=== PATIENT | male | born 1995 ===

== ENCOUNTER 2016-08-27 02:16 | Observation (INO) | payer BC ==
[2016-08-27 02:26] VITALS: TEMP 98.7; O2SAT 99
[2016-08-27] MEDS ORDERED: Dextrose 5%/0.45% NS 1,000 ML IV SCH (02:45)
[2016-08-27 02:59] LABS: BASO # 0.1 K/uL (0.0-0.2); BASO % 0.8 % (0.0-2.0); EOS % 0.2 % (0.0-4.0); HEMATOCRIT 44.6 % (35.0-51.0); LYMPH # 3.8 K/uL (1.0-4.3); LYMPH % 32.1 % (20.0-40.0); MEAN CELL VOLUME 89.4 fl (80.0-94.0); MEAN CORPUSCULAR HEMOGLOBIN 29.1 pg (27.0-31.0); MEAN CORPUSCULAR HGB CONC 32.5 g/dL (33.0-37.0); MEAN PLATELET VOLUME 7.8 fl (7.2-11.7); MONO # 0.9 K/uL (0.0-0.8); MONO % 7.4 % (0.0-10.0); NEUT % 59.5 % (50.0-75.0); NRBC % 0.1 % (0.0-0.0); RED CELL DISTRIBUTION WIDTH 12.9 % (11.5-14.5); WHITE BLOOD COUNT 11.7 K/uL (4.8-10.8)
--- NOTE | 2016-08-27 03:07 | ED PDOC ---
HPI: Psych/Substance Abuse Time Seen by Provider: 08/27/16 02:20 Chief Complaint (Nursing): Alcohol Ingestion Chief Complaint (Provider): Alcohol Intoxication ED Caveat: Intoxicated History Per: EMS, Family (brother is at bedside ) History/Exam Limitations: intoxication Additional Complaint(s): Alec Diaz is a 21 y/o male brought in by EMS on 08/27/2016 to the ER for alcohol intoxication. Per EMS, patient was found intoxicated at a [facility] Patient was unable to respond to EMS crew on scene, prompting them to bring patient in for further evaluation. Patient's brother is currently bedside providing history. Of note, patient vomited in the ED. Rest of HPI/ROS is limited due to patient's state of intoxication Past Medical History Reviewed: Historical Data, Nursing Documentation, Vital Signs Vital Signs: Last Vital Signs Temp 98.7 F 08/27/16 02:24 Pulse 68 08/27/16 02:24 Resp 16 08/27/16 02:24 BP 103/41 L 08/27/16 02:24 Pulse Ox 99 08/27/16 02:24 - Medical History PMH: No Chronic Diseases - Surgical History Surgical History: No Surg Hx - Family History Family History: States: Unknown Family Hx - Allergies Allergies/Adverse Reactions: Allergies Allergy/AdvReac Type Severity Reaction Status Date / Time No Known Allergies Allergy Verified 08/27/16 02:26 Review of Systems Review Of Systems: ROS cannot be obtained secondary to pt's inabilty to answer questions. Physical Exam - Reviewed Nursing Documentation Reviewed: Yes Vital Signs Reviewed: Yes - Physical Exam Appears: Positive for: No Acute Distress. Negative for: Non-toxic Head Exam: Positive for: ATRAUMATIC, NORMOCEPHALIC Skin: Positive for: Normal Color Eye Exam: Positive for: Normal appearance, EOMI, PERRL Neck: Positive for: Normal, Painless ROM, Supple Cardiovascular/Chest: Positive for: Regular Rate, Rhythm. Negative for: Murmur Respiratory: Positive for: Normal Breath Sounds. Negative for: Respiratory Distress Gastrointestinal/Abdominal: Positive for: Normal Exam, Soft. Negative for: Tenderness Extremity: Positive for: Normal ROM. Negative for: Deformity Neurologic/Psych: Positive for: Gait (unsteady ), Other (pt is obtunded). Negative for: Alert, Oriented, Motor/Sensory Deficits - Laboratory Results Result Diagrams: 08/27/16 02:57 08/27/16 02:57 - ECG O2 Sat by Pulse Oximetry: 99 (RA) Pulse Ox Interpretation: Normal Medical Decision Making Medical Decision Makin:20 Initial Impression- 21 y/o male with alcohol intoxication. Initial Plan- * Alcohol serum * CMP * Drug screen * CBC w/ differential * Dextrose 1,000 ml IV * Zofran 4 mg IV * Accucheck * ED-OBS Pt will be placed under ED Observation. See ED OBS for further updates. Documented by Mc Desir, acting as a scribe for Tree Tucker MD. All medical record entries made by the Scribe were at my direction and personally dictated by me. I have reviewed the chart and agree that the record accurately reflects my personal performance of the history, physical exam, medical decision making, and the department course for this patient. I have also personally directed, reviewed, and agree with the discharge instructions and disposition. ED OBSERVATION Date of observation admission: 08/27/16 Time of observation admission: 03:00 - Observation admission statement Patient is being placed in observation because:: Pt is clinically intoxicated - Goals of Observation Goals of observation are:: Clinical sobriety and re-evaluation. - Progress Note Progress Note: 08/27/16 05:30 Pt was re-evaluated. Pt is awake, alert, and oriented x3. Pt shows steady gait and clear speech. Pt will be discharged to his parents. Condition is stable for discharge. Clinical dx- alcohol intoxication. Disposition - Clinical Impression Clinical Impression: Alcohol abuse with intoxication - Disposition Disposition: Routine/Home (will be discharged with parents) Disposition Time: 05:30 Condition: STABLE
[2016-08-27 03:09] LABS: ALB/GLOB RATIO 1.5 (1.0-2.1); ALCOHOL SERUM 290 mg/dl (0-10); ALKALINE PHOSPHATASE 87 U/L (38-126); ALT/SGPT 45 U/L (21-72); AST/SGOT 44 U/L (17-59); BILIRUBIN,TOTAL 0.4 mg/dl (0.2-1.3); BLOOD UREA NITROGEN 15 mg/dl (9-20); CALCIUM 9.2 mg/dL (8.4-10.2); CARBON DIOXIDE 21 mmol/L (22-30); CHLORIDE 109 mmol/L (98-107); GFR AFRICAN-AMERICAN > 60; GLUCOSE,RANDOM 132 mg/dL (75-110); POTASSIUM 3.7 MMOL/L (3.6-5.0); SODIUM 151 mmol/l (132-148)
[2016-08-27 05:50] VITALS: BP 105/68; PULSE 70; RESP 18
== END 2016-08-27 05:25 | disposition home or self-care (01) ==
LOC: H.ER 02:16 → H.EROBSV 03:00
PROVIDERS: ADMIT Emergency Medicine; ATTEND Emergency Medicine
DX: F10.129 Alcohol abuse with intoxication, unspecified (principal); Y90.8 Blood alcohol level of 240 mg/100 ml or more
CPT/HCPCS: 80053; 82948; 85025; 96360; 99281; G0378; G0480; J2405; J7042